=== PATIENT | male | born 1950 | race African-American/Black ===

== ENCOUNTER 2016-09-24 14:17 | Emergency (ER) | payer OTHER ==
[~2016-09-24] VITALS: Ht 175.3 cm; Wt 95.9 kg
[2016-09-24 14:20] VITALS: BP 123/82
== END 2016-09-24 16:54 | disposition left against medical advice (07) ==
LOC: ED 14:17
DX: Z53.21 Procedure and treatment not carried out due to patient leaving prior to being seen by health care provider (principal)

== ENCOUNTER 2018-05-12 15:25 | Emergency (ER) | payer OTHER ==
[~2018-05-12] VITALS: Ht 177.8 cm; Wt 95.3 kg
[2018-05-12 15:32] VITALS: Ht 177.8 cm; Wt 95.3 kg
[2018-05-12 16:09] LABS: BASOPHIL % 0.5 % (0-2); PLATELET COUNT 279 x10^3mcL (130-400); RED CELL DISTRIBUTION WIDTH 13.7 % (11.5-14.5)
[2018-05-12 16:18] LABS: CALCIUM 9.1 mg/dL (8.5-10.1); CARBON DIOXIDE 29.5 mmol/L (21-32); CREATININE SERUM 1.3 mg/dL (0.7-1.3); POTASSIUM SERUM 3.8 mmol/L (3.5-5.1)
[2018-05-12 16:22] LABS: ALBUMIN 3.9 g/dL (3.4-5.0); BILIRUBIN TOTAL 0.6 mg/dL (0.20-1.00)
[2018-05-12 16:47] LABS: UA SPECIFIC GRAVITY >=1.030 (1.005-1.035); microscopic required? YES; urine erythrocyte TRACE (NEGATIVE)
[2018-05-12 16:55] LABS: AMPHETAMINE QUAL UR NONE DETECTED (See below)
[2018-05-12 18:19] VITALS: BP 141/88
== END 2018-05-12 18:19 | disposition home or self-care (01) ==
LOC: ED 15:25
PROVIDERS: Emergency Medicine
DX: R07.89 Other chest pain (principal); M19.012 Primary osteoarthritis, left shoulder; I45.19 Other right bundle-branch block; I10 Essential (primary) hypertension; E78.00 Pure hypercholesterolemia, unspecified; F12.90 Cannabis use, unspecified, uncomplicated; F17.210 Nicotine dependence, cigarettes, uncomplicated; Z71.6 Tobacco abuse counseling; Z98.890 Other specified postprocedural states; Z72.0 Tobacco use
CPT/HCPCS: 83880; 99406; J1885